=== PATIENT | female | born 1935 ===

== ENCOUNTER 2018-12-02 19:43 | Inpatient (IN) | payer MEDICARE, MEDICAID ==
[~2018-12-02] VITALS: Ht 157.5 cm; Wt 71.7 kg
--- NOTE | 2018-12-02 19:51 | NUR ---
Pt ambulates to ER via cane accompanied by daughter with c/o chest pain describing it as "cramping" & "pressure" rating it 4/10 at this time. Pt states she was at home and woke up with chest discomfort radiating to her left shoulder. SA02 100% room air. Respirations even + unlabored. Denies N/V/D.
[2018-12-02] MEDS ORDERED: FAMO-132 PO (20:01)
[2018-12-02] MEDS ORDERED: VITAMIN D (20:01)
[2018-12-02] MEDS ORDERED: ARICEPT (20:01)
[2018-12-02] MEDS ORDERED: IRON (20:01)
--- NOTE | 2018-12-02 20:11 | NUR ---
EKG done, pt placed on monitor. Saline lock started on left AC IV 20 gauge. Labs drawn, sent to lab. Family at bedside. Pt appears in no apparent distress.
[2018-12-02 20:12] LABS: BASOPHILS % (AUTO) 0.7 % (0.0-2.0); EOSINOPHILS # (AUTO) 0.1 K/uL (0.0-0.7); EOSINOPHILS % (AUTO) 0.9 % (0.0-7.0); LYMPHOCYTES # (AUTO) 1.8 K/uL (20.0-40.0); LYMPHOCYTES % (AUTO) 28.7 % (20.5-51.5); MEAN CORPUSCULAR HEMOGLOBIN 30.6 uug (24.7-32.8); MEAN CORPUSCULAR HGB CONC 34 g/dL (32.3-35.6); MONOCYTES # (AUTO) 0.8 K/uL (2.0-10.0); MONOCYTES % (AUTO) 12.9 % (0.0-11.0); NEUTROPHILS # (AUTO) 3.7 K/uL (1.8-8.9); NEUTROPHILS % (AUTO) 56.8 % (38.5-71.5); PLATELET COUNT (AUTO) 213 K/uL (179-408); RED BLOOD CELL COUNT(AUTO) 4.26 MIL/uL (3.63-4.92); WHITE BLOOD COUNT (AUTO) 6.4 K/uL (3.8-11.8)
[2018-12-02 20:20] LABS: CARBON DIOXIDE 30 mmol/L (21-32); CHLORIDE 105 mmol/L (98-107); CREATININE 0.8 mg/dL (0.6-1.3); GLUCOSE 117 mg/dL (74-106); POTASSIUM 3.6 mmol/L (3.5-5.1); UREA NITROGEN, BLOOD 18 mg/dL (7-18)
--- NOTE | 2018-12-02 20:31 | NUR ---
Chest xray at bedside.
[2018-12-02 20:32] LABS: ALANINE AMINOTRANSFERASE 21 U/L (14-59); ALKALINE PHOSPHATASE 96 U/L (50-136); ASPARTATE AMINOTRANSFERASE 15 U/L (15-37); BILIRUBIN,DIRECT 0.1 mg/dL (0.0-0.2); BILIRUBIN,TOTAL 0.3 mg/dL (0.2-1.0); TOTAL PROTEIN, SERUM 7.1 g/dL (6.4-8.2)
--- NOTE | 2018-12-02 20:39 | NUR ---
Dr. Hayden at bedside.
[2018-12-02] MEDS ORDERED: NITROGLYCERIN OINT 1 GM PACKET TP ONE ×2 (20:45→20:54)
[2018-12-02] MEDS ORDERED: ENOXAPARIN SODIUM 60 MG/0.6 ML DISP.SYRIN SQ ONE ×2 (20:45→20:54)
[2018-12-02] MEDS ORDERED: CLOPIDOGREL 75 MG TABLET PO ONE (20:45)
[2018-12-02] MEDS ORDERED: METOPROLOL TARTRATE 50 MG TABLET PO ONE (20:45)
[2018-12-02] MEDS ORDERED: CLOPIDOGREL 75 MG TABLET ONE (20:54)
[2018-12-02] MEDS ORDERED: METOPROLOL TARTRATE 50 MG TABLET ONE (20:54)
--- NOTE | 2018-12-02 21:14 | NUR ---
Medications given. Pt resting comfortably in bed. Respirations even + unlabored.
--- NOTE | 2018-12-02 21:34 | NUR ---
Dr. Hayden at bedside for update.
--- NOTE | 2018-12-02 21:38 | NUR ---
Paged [employer] for panel call. Pending call back from Kerri Onofre NP.
--- NOTE | 2018-12-02 21:40 | NUR ---
Dr. Catracho GALE MD speaking to Kerri Onofre NP on telephone.
[2018-12-02] MEDS ORDERED: CHOL20004 PO (21:47)
[2018-12-02] MEDS ORDERED: DONE5TAB7 PO (21:47)
[2018-12-02] MEDS ORDERED: FERR325T28 PO (21:47)
--- NOTE | 2018-12-02 21:53 | NUR ---
Pt states that the nitroglycerin ointment makes her "chest pain less now." Family at bedside.
--- NOTE | 2018-12-02 22:16 | NUR ---
Pt. admitted to Telemetry, under care of Kerri Onofre NP. Diagnosis: Chest Pain Belongs List completed
[2018-12-02 23:01] VITALS: BP 146/82
--- NOTE | 2018-12-02 23:15 | NUR ---
ADMITTED FEMALE WITH CHIEF COMPLAINTS OF CHEST PAIN ACCOMPANIED BU DAUGHTER,VITAL SIGNS STABLE TELEMETRY SINUS RHYYHM. ORIENTED TO FLOOR .MADE COMFORTABLE.
[2018-12-02] MEDS ORDERED: TEMAZEPAM 7.5 MG CAPSULE PO PRN (23:45)
[2018-12-02] MEDS ORDERED: MAGNESIUM HYDROXIDE 30 ML LIQUID UDC PO PRN (23:45)
[2018-12-02] MEDS ORDERED: ONDANSETRON 4 MG/2 ML VIAL IV PRN (23:45)
[2018-12-02] MEDS ORDERED: HYDROCODONE/APAP 5-325MG TABLET PO PRN (23:45)
[2018-12-03] MEDS: FERROUS SULFATE 325 MG TABEC PO SCH ×2 (00:05→09:53)
[2018-12-03] MEDS: CHOLECALCIFEROL 1,000 UNIT TABLET PO SCH ×2 (00:06→09:55)
[2018-12-03] MEDS: FAMOTIDINE 20 MG TABLET PO SCH ×3 (00:06→17:15)
[2018-12-03] MEDS: DONEPEZIL 5 MG TABLET PO SCH ×3 (00:06→17:13)
[2018-12-03 00:44] VITALS: BP 110/62
[2018-12-03 05:08] VITALS: BP 130/70
[2018-12-03] MEDS: ACETAMINOPHEN 325 MG TABLET PO PRN ×2 (05:50→18:27)
--- NOTE | 2018-12-03 05:54 | NUR ---
SLEPT AT SHORT INTERVALS,COMPLAINED OF HEADACE, TYLENOL GRAIN 10 GIVEN,NITROPATCH REMOVED DAUGHTER AT BEDSIDE.
[2018-12-03 08:01] LABS: BASOPHILS % (AUTO) 0.8 % (0.0-2.0); EOSINOPHILS # (AUTO) 0.1 K/uL (0.0-0.7); EOSINOPHILS % (AUTO) 1.4 % (0.0-7.0); HEMATOCRIT 36.9 % (31.2-41.9); HEMOGLOBIN 12.7 g/dL (10.9-14.3); LYMPHOCYTES # (AUTO) 1.7 K/uL (20.0-40.0); LYMPHOCYTES % (AUTO) 32.9 % (20.5-51.5); MEAN CORPUSCULAR HEMOGLOBIN 30.7 uug (24.7-32.8); MEAN CORPUSCULAR HGB CONC 34 g/dL (32.3-35.6); MEAN CORPUSCULAR VOLUME 89.3 fL (75.5-95.3); MONOCYTES # (AUTO) 0.7 K/uL (2.0-10.0); MONOCYTES % (AUTO) 14.2 % (0.0-11.0); NEUTROPHILS # (AUTO) 2.6 K/uL (1.8-8.9); NEUTROPHILS % (AUTO) 50.7 % (38.5-71.5); PLATELET COUNT (AUTO) 203 K/uL (179-408); RED BLOOD CELL COUNT(AUTO) 4.13 MIL/uL (3.63-4.92); WHITE BLOOD COUNT (AUTO) 5.2 K/uL (3.8-11.8)
[2018-12-03 08:13] LABS: CARBON DIOXIDE 27 mmol/L (21-32); CHLORIDE 106 mmol/L (98-107); CHOLESTEROL 197 mg/dL (<200); CREATININE 0.8 mg/dL (0.6-1.3); GLUCOSE 107 mg/dL (74-106); HDL CHOLESTEROL 46 mg/dL (40-60); PHOSPHOROUS 4.2 mg/dL (2.5-4.9); POTASSIUM 3.7 mmol/L (3.5-5.1); TRIGLYCERIDES 188 MG/DL (30-150); UREA NITROGEN, BLOOD 15 mg/dL (7-18)
--- NOTE | 2018-12-03 10:22 | NUR ---
PHYSICAL THERAPY HERE TO SEE PATIENT FOR THERAPEUTIC EXERCISES BUT SHE REFUSED AT THIS TIME STATED SHE WANTED TO SLEEP AT THIS TIME.
[2018-12-03 11:34] VITALS: BP 137/74
[2018-12-03 15:05] VITALS: BP 138/71
--- NOTE | 2018-12-03 16:00 | NUR ---
PATIENT SEEN AND EXAMINED BY THE WELL TESTER DR VERAS AND CLEARED 2 D ECHO IS 65 PERCENT EF DENIES CHEST PAIN AT THIS TIME.
--- NOTE | 2018-12-03 17:00 | NUR ---
PATIENT IS FOR DISCHARGE TODAY PER THE BREAKER MACHINE TENDERCHIEF HYDROELECTRIC STATION OPERATOR WORKER PATIENTS DAUGHTER IS IN THE ROOM AND AWARE AWAITING FOR DISCHARGE ORDER FROM DR CUTLER.
--- NOTE | 2018-12-03 18:30 | NUR ---
PATIENT DISCHARGED PICKED UP BY HER DAUGHTER ROHIT IN SATISFACTORY CONDITION WITH DISCHARGE INSTRUCTIONS AND PATIENT INSTRUCTED TO CALL FOR A FOLLOW UP APPOINTMENT WITH HER PRIMARY DOCTOR WITHIN THE NEXT ONE TO TWO WEEKS AND SHE EXPRESSED UNDERSTANDING.
== END 2018-12-03 18:30 | disposition home or self-care (01) | DRG 311 ==
LOC: ER 19:45 → TELE 22:30 → MED 12-03 15:45
PROVIDERS: ADMIT Nurse Practitioner Acute Care; ATTEND Internal Medicine
DX: I20.0 Unstable angina (principal); I11.9 Hypertensive heart disease without heart failure; K21.9 Gastro-esophageal reflux disease without esophagitis; K44.9 Diaphragmatic hernia without obstruction or gangrene; Z79.899 Other long term (current) drug therapy; K27.9 Peptic ulcer, site unspecified, unspecified as acute or chronic, without hemorrhage or perforation; D63.8 Anemia in other chronic diseases classified elsewhere
CPT/HCPCS: 36415; 70030-TC; 71045; 83735; 84100; 85025; 85730; 93005; 93307; A4663; G0378; J1650